=== PATIENT | female | born 1965 | race Caucasian/White ===

== ENCOUNTER 2018-01-29 07:52 | Emergency (ER) | payer OTHER ==
[2018-01-29] MEDS ORDERED: Sodium Chloride 0.9% 1,000 ML IV ONE (08:00)
[2018-01-29] MEDS ORDERED: Sodium Chloride 0.9% 10 ML Syringe ONE ×2 (08:04)
[2018-01-29] MEDS ORDERED: fentaNYL 100 MCG/2 ML SDV ONE ×4 (08:04→09:35)
[2018-01-29] MEDS ORDERED: LORazepam 2 MG/ML SDV ONE ×2 (08:04→09:34)
[2018-01-29 08:33] LABS: CHLORIDE,CL 102 mmol/L (98-107); SODIUM,NA 139 mmol/L (136-145)
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
== END 2018-01-29 13:15 | disposition home or self-care (01) ==
LOC: LL.ED 07:52
DX: M54.5 Low back pain (principal); V89.2XXA Person injured in unspecified motor-vehicle accident, traffic, initial encounter
CPT/HCPCS: 36415; 72040; 72070; 72100; 72125; 72141; 72170; 80048; 82150; 83690; 84484; 85025; 96361; 96374; 96375; 99285; J2060; J3010; J7030; J7050